=== PATIENT | female | born 1985 | race Caucasian/White ===

== ENCOUNTER 2022-08-11 12:50 | Emergency (ER) | payer OTHER ==
[~2022-08-11] VITALS: Ht 144.8 cm; Wt 52.2 kg
[2022-08-11 14:20] LABS: BASOPHILS PERCENT AUTO 1 % (0-2); EOSINOPHILS ABSOLUTE AUTO 0.07 K/mm3 (0.00-0.68); EOSINOPHILS PERCENT AUTO 0 % (0-6); Hematocrit 35.8 % (33.0-51.0); Hemoglobin 12.9 g/dL (11.5-16.0); IMMATURE GRAN ABSOLUTE AUTO 0.08 K/mm3 (0.00-0.10); IMMATURE GRAN PERCENT AUTO 1 % (0-1); LYMPHOCYTES ABSOLUTE AUTO 1.92 K/mm3 (0.84-5.20); LYMPHOCYTES PERCENT AUTO 12 % (21-46); MONOCYTES ABSOLUTE AUTO 0.43 K/mm3 (0.16-1.47); MONOCYTES PERCENT AUTO 3 % (4-13); Mean Corpuscular HGB 30.9 pg (26.0-34.0); Mean Corpuscular Volume 86 fL (80-100); Mean Platelet Volume 10.1 fL (9.1-12.4); NEUTROPHILS ABSOLUTE AUTO 13.13 K/mm3 (1.96-9.15); NEUTROPHILS PERCENT AUTO 84 % (41-73); Platelet Count 290 K/mm3 (150-400); RDW Coefficient Variation 12.7 % (11.7-14.2); RDW Standard Deviation 39.6 fL (35.1-46.3); Red Blood Cell Count 4.17 M/mm3 (3.80-5.20); White Blood Cell Count 15.73 K/mm3 (4.00-11.30)
[2022-08-11 14:27] LABS: Albumin, Blood 3.8 g/dL (3.4-5.0); Albumin/Globulin Ratio 1.2 (0.8-1.8); Beta-hydroxybutyrate 1.1 mg/dL (0.2-2.8); Bilirubin, Total 1.1 mg/dL (0.1-1.0); Bun/Creatinine Ratio 13.1 (12.0-20.0); Calcium, Blood 8.6 mg/dL (8.5-10.1); Creatinine, Blood 0.77 mg/dL (0.40-1.00); Globulin, Blood 3.3 g/dL (2.2-4.0); Potassium, Blood 3.9 mmol/L (3.5-5.5); Total Protein, Blood 7.1 g/dL (6.4-8.2)
[2022-08-11] MEDS ORDERED: BUPR75 (15:16)
[2022-08-11] MEDS ORDERED: OMEP20ER (15:17)
[2022-08-11] MEDS ORDERED: PREG25 (15:17)
[2022-08-11] MEDS ORDERED: AMPDEX5 (15:17)
[2022-08-11 17:35] LABS: Source, Urine Clean Catch
[2022-08-11 17:43] LABS: Appearance, Urine Clear (Clear); Bilirubin, Urine Neg (Neg); Blood, Urine Neg (Neg); Color, Urine Yellow (P-Yellow); Glucose Qualitative, Urine Neg (Neg); Ketones, Urine Neg (Neg); Leukocyte Esterase, Urine Neg (Neg); Nitrite, Urine Neg (Neg); Protein, Urine 1+ (Neg); Specific Gravity, Urine 1.015 (1.003-1.022); Urobilinogen, Urine NORM (Normal)
[2022-08-11] MEDS ORDERED: METO10 PO (17:57)
[2022-08-11 18:00] VITALS: BP 114/73
== END 2022-08-11 18:13 | disposition home or self-care (01) ==
LOC: EDBD 12:50 → ER 12:50
PROVIDERS: Emergency Medicine
DX: R07.9 Chest pain, unspecified (principal); R10.13 Epigastric pain; R11.2 Nausea with vomiting, unspecified; Z95.0 Presence of cardiac pacemaker
CPT/HCPCS: 71046; 74177; 80053; 82010; 83690; 83880; 84484; 85025; A9270; J1885; J2405; J3010; J7030; Q9967